=== PATIENT | female | born 1995 | race Caucasian/White ===

== ENCOUNTER 2018-06-30 22:44 | Emergency (ER) | payer BC, OTHER ==
[~2018-06-30] VITALS: Ht 160 cm; Wt 60.0 kg
[2018-06-30] MEDS ORDERED: PROCHLORPERAZINE 5 MG/ML, 2ML ONE (23:24)
[2018-06-30] MEDS ORDERED: SODIUM CHLORIDE 0.9% 1,000ML IVBOLUS ONE (23:30)
[2018-06-30] MEDS ORDERED: PROCHLORPERAZINE 5 MG/ML, 2ML IVPush ONE (23:30)
[2018-06-30 23:48] LABS: MEAN CORPUSCULAR HEMOGLOBIN 28.6 pg (27.0-34.8); MEAN CORPUSCULAR HGB CONC 33.9 g/dL (32.4-35.8); MEAN CORPUSCULAR VOLUME 84.3 fL (80-100); PLATELET COUNT 331 x10^3/uL (130-400); RED BLOOD COUNT 5.74 x10^6/uL (3.82-5.3); RED CELL DISTRIBUTION WIDTH 14.4 % (9.6-15.2)
[2018-06-30 23:52] LABS: ALANINE AMINOTRANSFERASE 20 U/L (12-78); ALBUMIN 4.3 g/dL (3.4-5.0); ANION GAP 12 mmol/L (5-15); CHLORIDE 106 mmol/L (98-107)
[2018-06-30 23:57] LABS: ALKALINE PHOSPHATASE 80 U/L (45-117); BILIRUBIN,TOTAL 0.6 mg/dL (0.2-1.0); CREATININE 1.03 mg/dL (0.55-1.02)
[2018-07-01 00:19] LABS: MICROSCOPIC INDICATED
[2018-07-01 00:24] LABS: MD YES
[2018-07-01] MEDS ORDERED: SODIUM CHLORIDE 0.9% 1,000ML IVBOLUS ONE ×2 (00:30→02:00)
[2018-07-01 00:32] LABS: <PLATELET ESTIMATE> ADEQUATE; <PLT MORPHOLOGY> NORMAL PLT MORPH; <RBC MORPHOLOGY> NORMAL; BAND#(MANUAL) 1.36 x10^3/uL; BANDS%(MANUAL) 10 % (0-7); LYMPH#(MANUAL) 0.54 x10^3/uL (1-3.4); LYMPHS% (MANUAL) 4 % (22-44); MONOS#(MANUAL) 0.27 x10^3/uL (0.3-2.7); MONOS% (MANUAL) 2 % (2-9); SEG#(MANUAL) 11.42 x10^3/uL (1.8-6.8); SEGS% (MANUAL) 84 % (42-75)
[2018-07-01] MEDS ORDERED: OMNIPAQUE 350 MG/ML, 100ML BOTTLE ONE (01:04)
[2018-07-01 02:34] VITALS: BP 103/58
== END 2018-07-01 02:58 | disposition home or self-care (01) ==
LOC: ED 07-01 02:30
DX: R11.2 Nausea with vomiting, unspecified (principal); E86.0 Dehydration; R10.13 Epigastric pain
CPT/HCPCS: 36415; 74177; 80053; 81001; 83690; 84703; 85025; 96361; 96374; 99284; J0780; J7030; Q9967